=== PATIENT | female | born 1975 | race Caucasian/White ===

== ENCOUNTER → 2021-12-03 14:45 | Outpatient (CLI) | payer BC, SELFPAY ==
--- NOTE | ~2021-12-03 | XR_ITS ---
XR lumbar spine 2-3V DATE: 12/03/2021 15:03 INDICATION: Back pain TECHNIQUE: AP, lateral, coned lateral lumbosacral views COMPARISON: None FINDINGS: There is slight levoscoliosis of the thoracolumbar spine. There is minimal degenerative spu rring of the lumbar spine. Lumbar and lumbosacral spaces are well preserved. No fracture or bone destruction. The included lower thoracic and lumbar pedicles are intact. The sacr oiliac joints are normal. IUD device overlies the pelvis. IMPRESSION: Slight levoscoliosis Minimal degenerative spurring Reviewed, dictated and finalized at location A. POURER
== END ==
PROVIDERS: PCP Family Medicine; Visit Provider Nurse Practitioner Family
DX: M54.9 Dorsalgia, unspecified (principal)
CPT/HCPCS: 72100

== ENCOUNTER 2024-09-06 03:02 | Day surgery (SDC) | payer OTHER, SELFPAY ==
[2024-08-30 11:11] VITALS: BMI 25.4
--- NOTE | 2024-08-30 11:11 | PC.NURSE ---
Report to the Outpatient Waiting Room, entrance under the green pavilion located off [facility], at time _0815_ on date _[phone]_. Planned Procedure Time: _1015_.? Time changes happen often and if your time is changed the preop area will call you the afternoon before. - You and your visitor will be asked to self-screen and do not enter if you have any COVID symptoms. Please call surgeon if you need to reschedule. - A mask is optional within the hospital at this time. Patients may have clear liquids (water, carbonated beverages, clear teas, apple juice) until 3 hours prior to surgery with a maximum of 20 ounces. - No food from midnight until time of surgery and no smoking Take only the following medications with a SIP of water on the morning of surgery: _Albuterol if needed.__ DO NOT STOP ANY OF YOUR OTHER PRESCRIPTION MEDICATIONS PRIOR TO SURGERY EXCEPT THE FOLLOWING Medications to discontinue per physician ____None___ Date to take last dose Please no make-up, nail maltese, hairspray, perfume, deodorant, or body powder the day of surgery.? No jewelry (including any body piercings) or valuables the day of surgery, leave them at home.? Please take a shower or bath the night before, or the morning of, surgery with an antibacterial soap.? Wear comfortable, loose fitting clothing.? - Jewelry must be removed prior to entering the operating room.? Rings and piercings that are not removed may be cut off. - The hospital will not accept responsibility for valuables.? - Please leave all valuables, including medications, at home the day of surgery. If you are going home after surgery, a licensed new car driver must drive you home.? - NO public transportation without another adult if you receive anesthesia. - We recommend that an adult stay with you for 24 hours following discharge. - We also recommend that you do not drive, make important decision, drink alcoholic beverages, or take any drugs that were not prescribed by your health care provider for at least 24 hours after your discharge time. Follow any additional instructions given to you from your surgeon. Telephone instructions given to _Kristi__and asked if any additional questions and then verbalized understanding. Patient advised to call surgeon office or pre surgery nurse liaison [phone] if any additional questions.
--- NOTE | 2024-09-04 07:08 | PM.IMHP ---
H&P: HPI History of Present Illness Date/Time: 09/04/24 07:08 Chief Complaint: Retained portion of IUD Narrative: Is a 48-year-old female who had an IUD removed and 1 weighing was the unable to be removed. She has a large 5cm fibroid there was only a cm half about 6 months ago. Ultrasound shows the portion of the IUD to be present inside the uterus. She will undergo hysteroscopy dilatation curettage. Risks and benefits reviewed in great detail. She had all questions answered and asked to proceed [facility] Social History Social History Smoking status: Never smoker Alcohol intake: current Drinks per week: 5 Substance use type: marijuana Other substance usage details: once a month Living arrangements: with family Spiritual care concerns: No Meds Home Medications and Allergies Home Medications Medication Instructions Recorded Confirmed Type albuterol 90 mcg/actuation aerosol 1 mcg inhalation QID PRN Dyspnea 08/30/24 08/30/24 History inhaler dicyclomine 10 mg capsule 20 mg PO QID 08/30/24 08/30/24 History fexofenadine 180 mg tablet 180 mg PO DAILY 08/30/24 08/30/24 History valacyclovir 1 gram tablet 1,000 mg PO Q12H PRN Cold Sores 08/30/24 08/30/24 History Allergies Allergy/AdvReac Type Severity Reaction Status Date / Time No Known Allergies Allergy Verified 08/30/24 14:38 Exam Const: General: cooperative, healthy appearing, comfortable and average body habitus Orientation/consciousness: oriented to person, oriented to place and oriented to time Resp: Effort & Inspection: normal respiratory effort Cardio: Rate: regular rate Rhythm: regular rhythm Heart sounds: S1 normal heart sound present and S2 normal heart sound present GI: Inspection: normal to inspection : External Female Exam: normal external appearance Speculum Exam - Vagina: normal appearance of the vagina Speculum Exam - Cervix: normal appearance of the cervix Bimanual exam- vagina & uterus: enlarged Bimanual Exam- Adnexa, other: normal adnexae Assessment and Plan Assessment and plan (1) Inflammation associated with retained intrauterine contraceptive device (IUD): Code(s): T83.69XA - Infection and inflammatory reaction due to other prosthetic device, implant and graft in genital tract, initial encounter Status: Acute Assessment and Plan: Proceed with hysteroscopy and removal of IUD as well as dilatation curettage.
--- NOTE | ~2024-09-06 | XR_ITS ---
EXAMINATION: XR pelvis 1-2V DATE: 09/06/2024 10:34 INDICATION: Dislodged IUD TECHNIQUE: An anteroposterior view of the pelvis was obtained. COMPARISON: Lumbar spine radiographs dated 12/03/2021 FINDINGS: The previously seen T-shaped IUD is no longer present in the pelvis or visualized lower abdomen. Ther e are couple surgical clips the right lower quadrant which could represent clips related to prior cho lecystectomy or clips related to prior appendectomy. Couple sclerotic likely bone islands at the righ t femoral head and right iliac wing. IMPRESSION: 1. No IUD in the pelvis or visualized lower abdomen. Reviewed, dictated and finalized at location A.
--- NOTE | 2024-09-06 06:49 | WPDHPUPDATE1 ---
History and Physical Update Update Date/Time: 09/06/24 06:49 History and Physical has been reviewed, including an updated exam of the patient. There are NO changes in the patient's condition. Risks, benefits, and alternatives have been discussed and questions answered. Patient agrees to proceed with procedure.
[2024-09-06 08:20] VITALS: BP 144/79; PULSE 69; RESP 16; TEMP 36.3; O2SAT 100
[2024-09-06] MEDS: ACETAMINOPHEN 500 MG TABLET 1000 MG PO (08:42)
[2024-09-06] MEDS: LACTATED RINGERS 1,000 ML 30 ML IV CONT (08:50)
[2024-09-06 08:57] LABS: Hemoglobin 12.1 g/dL (12.0-15.0)
[2024-09-06 09:04] LABS: BEDSIDEPREGUCG Negative (Negative)
--- NOTE | 2024-09-06 09:18 | WPDANESEPPF ---
Anes - Initial Pre Proc Eval Procedure: Operation Date: 09/06/24 10:15 Proposed Procedures p Hysteroscopy Dilation and Curettage with Removal of Intrauterine Device - Todd Nath MD Date/Time: 09/06/24 09:18 Surgeon: Todd Nath MD Pre Op Diagnosis: Removal of IUD Patient Data Age: 48 Gender: F Height: 1.68 m Weight: 72.6 kg Last Vital Signs Temp 36.3 C L 09/06/24 08:20 Pulse 69 09/06/24 08:20 Resp 16 09/06/24 08:20 BP 144/79 H 09/06/24 08:20 Pulse Ox 100 09/06/24 08:20 O2 Del Method Room Air 09/06/24 08:20 Allergies Allergy/AdvReac Type Severity Reaction Status Date / Time No Known Allergies Allergy Verified 09/06/24 08:18 Home Medications Medication Instructions Recorded Confirmed Type albuterol 90 mcg/actuation aerosol 1 mcg inhalation QID PRN Dyspnea 08/30/24 09/06/24 History inhaler dicyclomine 10 mg capsule 20 mg PO QID 08/30/24 09/06/24 History fexofenadine 180 mg tablet 180 mg PO DAILY 08/30/24 09/06/24 History valacyclovir 1 gram tablet 1,000 mg PO Q12H PRN Cold Sores 08/30/24 09/06/24 History hydrocodone 5 mg-acetaminophen 325 1 tablet PO Q4H PRN pain #14 tabs 09/06/24 Rx mg tablet medroxyprogesterone 10 mg tablet 10 mg PO DAILY 09/06/24 09/06/24 History (Provera) venlafaxine 37.5 mg 37.5 mg PO QPM 09/06/24 09/06/24 History capsule,extended release 24 hr (Effexor XR) Laboratory Tests 09/06/24 09/06/24 08:20 08:45 Hgb Pending Hct Pending POC Urine HCG, Qual Negative (Negative) Patient hx anesthesia problems: none Family hx anesthesia problems: none Results Review: All pre-operative results and documents have been reviewed as part of the pre-operative evaluation. [facility] Past Medical History Medical History (Updated 09/06/24 @ 09:18 by Todd Montoya MD) Overweight Social History Social History Smoking status: Never smoker Alcohol intake: current Drinks per week: 5 Substance use type: marijuana Other substance usage details: once a month Living arrangements: with family Spiritual care concerns: No Anes - Eval Final PreProcedure Day of Procedure 09/06/24 09:18 Patient weight: overweight Heart: regular rate and rhythm Lungs: clear to auscultation Airway: Mallampati scale class II Neurological: alert and oriented Last oral intake: >/= 8 hours ASA classification: II Emergent: no Anesthetic plan: proceed Anesthesia type and monitoring: general GIVS and standard monitoring Results Review: All pre-operative results and documents have been reviewed as part of the pre-operative evaluation. Informed Consent: The patient's anesthetic plan and its attendant risks and benefits were discussed with the patient/family/POA. Questions were solicited and answers provided to the satisfaction of the patient/family/POA.
[2024-09-06] MEDS: LIDOCAINE HCL 1% LOCAL INJ 20 ML VIAL 10 ML INFILTRATE (10:12)
[2024-09-06 10:16] VITALS: BP 120/74; PULSE 66; RESP 14; O2SAT 100
--- NOTE | 2024-09-06 10:18 | P.OP_ITS ---
Procedure Note - Detailed Date of Procedure 09/06/24 Pre-op Diagnosis Removal of IUD Post-op Diagnosis Same Procedure Performed Hysteroscopy polypectomy dilatation curettage Surgeon Todd Nath MD Anesthesia MAC and Local Indications this is a 48-year-old woman who had IUD removed 1 lesion was missing. She underwent ultrasound was what appeared to possibly be the remnant in the uterus she does have a 5cm fibroid making exam much more difficult she has also had heavy bleeding Findings small polyp was seen inside the uterus. No evidence of remaining arm of the IUD seen. Description of Procedure The patient was prepped draped in the normal sterile fashion placed in the dorsal lithotomy position. Under excellent IV sedation weighted speculum placed in posterior fornix vagina. Anterior lip of the cervix grasped with single- tooth tenaculum. 2.5cc 1% xylocaine anesthesia placed at 2, 4, 8, 10:00 a.m. of the cervix. Uterus sounded to 8cm. Serial dilatation with fragmented dilators performed followed by passage of the 5mm visualizing hysteroscope using normal saline as visualizing medium. Small polyp was seen no other abnormalities were seen each fallopian tube os could be seen the entire cavity was visualized and no evidence of remaining arm was present. The polyp was removed with a polyp polyp reticular later. And the uterus scraped over the entire 360 gaze until good grating sound was heard the instruments removed. The patient was awakened went recovery in satisfactory condition. All sponge, needle, instruments were correct. There were no immediate complications. A pelvic x-ray has been ordered to see if the remaining portion is intra-abdominal Estimated Blood Loss 5 Drains No Packing No Pathology Yes Complications No immediate complications Condition Stable Disposition PACU
[2024-09-06 10:45] VITALS: BP 155/84; PULSE 66
[2024-09-06 11:15] VITALS: BP 148/84; PULSE 62
[2024-09-06 11:45] VITALS: BP 147/85; PULSE 67
== END 2024-09-06 11:50 | disposition home or self-care (01) ==
PROVIDERS: PCP Family Medicine; Visit Provider Obstetrics & Gynecology
PROC: 0U5B8ZZ Destruction of Endometrium, Via Natural or Artificial Opening Endoscopic (ICD-10-PCS; CPT 58563; principal; 2024-09-06 10:15)
DX: R93.89 Abnormal findings on diagnostic imaging of other specified body structures (principal); N84.0 Polyp of corpus uteri; F12.90 Cannabis use, unspecified, uncomplicated; Z79.51 Long term (current) use of inhaled steroids; Z79.891 Long term (current) use of opiate analgesic
CPT/HCPCS: 58558; 36415; 72170; 85014; 85018; 88305; A9270; J1100; J2003; J2250; J2405; J2704; J3010; J7120

== ENCOUNTER 2024-12-31 12:22 | Outpatient (CLI) | payer OTHER, SELFPAY ==
--- OUTSIDE RECORDS SUMMARY | 2024-12-31 14:08 | XMS_ITS | Clinical Summary ---
Author Organization [facility] Address [address] [place] [address] Care Team Providers Care Draw Bench Operator Name Role Phone Oksana Herndon MD Primary Care Provider Allergies No known active allergies Medications albuterol sulfate HFA 108 (90 Base) MCG/ACT inhaler Inhale 1 puff into the lungs every 6 (six) hours as needed. Active valACYclovir (VALTREX) 500 MG tablet Take 2 tablets (1,000 mg total) by mouth as needed (cold sore flares). 3 Active Testosterone Powder Apply 1 Application topically daily. 4 Active cetirizine (ZYRTEC) 10 MG tablet Take 1 tablet (10 mg total) by mouth daily. Active HYDROcodone-acet aminophen (NORCO) 5-325 MG tabletIndication s:Acute Pain < 7 Day Supply Take 1 tablet by mouth every 8 (eight) hours as needed for Pain. Indications: Acute Pain < 7 Day Supply 15 tablet 4 Active Additional Information Patient not taking.Reported on 05/01/2024 dicyclomine (BENTYL) 10 MG capsuleIndicatio ns:Diarrhea, unspecified type TAKE 2 CAPSULES (20 MG TOTAL) BY MOUTH 4 (FOUR) TIMES DAILY BEFORE MEALS AND NIGHTLY. 120 capsule 3 4 Active Active Problems Problem Noted Date Diagnosed Date Acute appendicitis 04/04/2024 Resolved Problems Problem Noted Date Diagnosed Date Resolved Date Appendicitis 04/04/2024 05/01/2024 Encounters Date Type Department Care Team Description 12/13/2024 2:14 PM TOOL PROGRAMMER - 12/13/2024 11:59 PM TOOL PROGRAMMER Hospital Encounter [facility] [address] [place] [address] Jerel Hyde MD Discharge Disposition: Home or Self Care (Routine Discharge) 12/13/2024 Orders Only [facility] [address] [place] [address] Jerel Hyde MD 12/13/2024 Travel from Last 3 Months Family History Medical History Relation Comments Stroke Father Breast Cancer Maternal Grandmother Heart Disease Mother Kidney Disease Sister Relation Status Comments Father Maternal Grandmother Mother Sister Social History Tobacco Use Types Packs/Day Years Used Date Smoking Tobacco: Never Smokeless Tobacco: Never Tobacco Cessation:Counseling Given: Not Answered [facility] Utilities Answer Date Recorded In the past 12 months has e [employer], gas, oil, or water [employer] threatened to shut off services in your home? No 04/04/2024 Humiliation, Afraid, Rape, and Kick questionnair e Answer Date Recorded Within the last year, have y ou been afraid of your partner or ex-partner? No 04/04/2024 Within the last year, have y ou been humiliated or emotionally abused in other ways by your partner or ex-partner? No Within the last year, have y ou been kicked, hit, slapped, or otherwise physically hurt by your partner or ex-partner? No 04/04/2024 Within the last year, have y ou been raped or forced to have any kind of sexual activity by your partner or ex-partner? No 04/04/2024 Overall Financial Resource Strain (CARDIA) Answe r Date Recorded How hard is it for you to pa y for the very basics like food, housing, medical care, and heating? Not hard at all 04/04/2024 Hunger Vital Sign Answer Date Recorded Within the past 12 months, y ou worried that your food would run out before you got the money to buy more. Never true 04/04/20 24 Within the past 12 months, t he food you bought just didn't last and you didn't have money to get more. Never true 04/04/2024 PRAPARE - Transportation Answer Date Re corded In the past 12 months, has l ack of transportation kept you from medical appointments or from getting medications? No 03/08 In the past 12 months, has l ack of transportation kept you from meetings, work, or from getting things needed for daily living? No 04/04/2024 Housing Stability Vital Sign Answer Lakhwinder e Recorded In the last 12 months, was t here a time when you were not able to pay the mortgage or rent on time? No 04/04/2024 In the past 12 months, how m any times have you moved where you were living? 1 04/04/2024 At any time in the past 12 m [facility], were you homeless or living in a longterm (including now)? No 04/04/2024 Comments No Sex and Gender Information Value Date Recorded Sex Assigned at Not on file Legal Sex Female 8:24 PM CDT Gender Identity Not on file Sexual Orientation Not on file Last Filed Vital Signs Vital Sign Reading Time Taken Comments Blood Pressure 130/75 05/01/2024 1:14 PM CDT Pulse 67 05/01/2024 1:14 PM CDT Temperature 36.7 C (98.1 F) 05/01/2024 1:14 PM CDT Respiratory Rate 16 05/01/2024 1:14 PM CDT Oxygen Saturation 99% 05/01/2024 1:14 PM CDT Inhaled Oxygen Concentration - - Weight 69.9 kg (154 lb 2 oz) 04/05/2024 4:31 AM CDT Height 167.6 cm (5' 6 ) 04/04/2024 7:45 AM CDT Body Mass Index 24.88 04/04/2024 7:45 AM CDT Plan of Treatment Health Maintenance Due Date Last Done Comments Cervical Cancer Screening Pap Smear (Age 30 to 64) Every 3 Years 1973 Colorectal Cancer Screening Colonoscopy (10 Years) 1973 Annual Physical 1976 Hepatitis C 1991 Hepatitis B Vaccines (1 of 3 - + 3-dose series) 1992 Cervical Cancer Screening Pap with HPV Testing (Age 30 to 64) Every 5 Years 2003 Cervical Cancer Screening with HPV 2003 Zoster Vaccines (1 of 2) 2023 DTaP, Tdap and Td Vaccines (2 - Td or Tdap) 01/05/2024 01/04/2014 COVID-19 Vaccine ( season) 2024 08/31/2022, 03/14/2022, 09/02/2021, Additional history exists Influenza Adult (#1) 2024 10/03/2022, 09/15/2021, 09/18/2012 PHQ-2 (Physician [place]) 11/06/2024 Mammogram Screening 03/20/2025 03/20/2023 Meningococcal B Vaccine Aged Out No l onger eligible based on patient's age to complete this topic Meningococcal Vaccine Aged Out No bruno yessi eligible based on patient's age to complete this topic Pneumococcal Vaccine: Pediatrics (0 to 5 Years) and At-Risk Patients (6 to 64 Years) Aged Out No longer eligible based on patient's age to complete this topic RSV Immunizations Under 20 Months Aged Out No longer eligible based on patient's age to complete this topic Procedures Procedure Name Priority Date/Time Associated Diagnosis Comments PROGESTERONE Routine 12/13/2024 2:20 PM TOOL PROGRAMMER Menopausal and female climacteric states ESTROGEN, TOTAL Routine 12/13/2024 2:20 PM TOOL PROGRAMMER Menopausal and female climacteric states HC TESTOSTERONE FREE-90 Routine 12/13/2024 2:20 PM TOOL PROGRAMMER Menopausal and female climacteric states FSH, FOLLICLE STIM HORMONE Routine 12/13/2024 2:20 PM TOOL PROGRAMMER Menopausal and female climacteric states MG SCREENING W RONNY TRACIE DIGI Routine 03/20/2023 4:37 PM CDT Encounter for screening mammogram for malignant neoplasm of breast from Last 3 Months or Most Recently Relevant to Health Maintenance Results * TESTOSTERONE, FREE & TOTAL (12/13/2024 2:20 PM TOOL PROGRAMMER) TESTOSTERONE TOTAL 7 2 - 45 ng/dL 12/18/2024 7:14 PM TOOL PROGRAMMER [facility] Comment: For additional information, please refer to http://education.[employer].riskmethods/faq/ ExeorFlwnthbgvdexZLJJXUGNQ863 (This link is being provided for informational/ educational purposes only.) This test was developed and its analytical performance characteristics have been determined by [facility] [place], [place]. It has not been cleared or approved by the U.S. Food and Drug Administration. This assay has been validated pursuant to the CLIA regulations and is used for clinical purposes. TESTOSTERONE FREE 0.6 0.1 - 6.4 pg/mL 12/18/2024 7:14 PM TOOL PROGRAMMER [facility] Comment: This test was developed and its analytical performance characteristics have been determined by [facility] [place], [place]. It has not been cleared or approved by the U.S. Food and Drug Administration. This assay has been validated pursuant to the CLIA regulations and is used for clinical purposes. Test Performed by [facility], [facility], [address] [place] [address] Bryan Naylor M.D., Ph.D., Director of Laboratories , CLIA [id number] 12/13/2024 2:20 PM TOOL PROGRAMMER Jerel Hyde MD LABORATORY Final Result [facility] [address] , * FSH, FOLLICLE STIM HORMONE (12/13/2024 2:20 PM TOOL PROGRAMMER) FSH 85.0 MIU/ML 12/13/2024 8:32 PM TOOL PROGRAMMER [facility] Comment: REFERENCE RANGES FOR FEMALES: FOLLICULAR 3.5-12.5 MID-CYCLE 4.7-21.5 LUTEAL 1.7-7.7 POSTMENOPAUSAL 25.8-134.8 12/13/2024 2:20 PM TOOL PROGRAMMER Jerel Hyde MD LABORATORY Final Result [facility] [address] [place] [address], [place] [phone] * ESTROGEN, TOTAL (12/13/2024 2:20 PM TOOL PROGRAMMER) [facility] ESTROGEN TOTAL S/P/B 57 pg/mL 12/19/2024 7:23 PM TOOL PROGRAMMER [facility] Comment: Reference Ranges for Total Estrogen: Follicular Phase: 51-601 Luteal Phase: 87-1194 Postmenopausal: < or = 214 Test performed by [facility] [address] [place] [address] [employer] Hel[employer] Machine: Lucía Whitley MD,PHD,GEOFF Test Reported by [facility], [address] [place] [address] Bryan Naylor M.D., Ph.D., Director of Laboratories , [facility] [id number] 12/13/2024 2:20 PM TOOL PROGRAMMER Jerel Hyde MD LABORATORY Final Result [facility] [id number] [place] [address], [place] [phone] * PROGESTERONE (12/13/2024 2:20 PM TOOL PROGRAMMER) [facility] PROGESTERONE <0.2 see note ng/mL 12/18/2024 2:24 PM TOOL PROGRAMMER [facility] Comment: Unable to flag abnormal result(s), please refer to reference range(s) below: Female: Follicular Phase <1.0 ng/mL Luteal Phase 2.6 - 21.5 ng/mL Post Menopausal <0.5 ng/mL : 1st Trimester 4.1 - 34.0 ng/mL 2nd Trimester 24.0 - 76.0 ng/mL 3rd Trimester 52.0 -302.0 ng/mL Test Performed by [facility] [place], [address] [place] [address] Bryan Naylor M.D., Ph.D., Director of Laboratories , CLIA [id number] 12/13/2024 2:20 PM TOOL PROGRAMMER Jerel Hyde MD LABORATORY Final Result Performing Organization Address City/[facility] Co de Phone Number [facility] [address] [place], [place] , * MG SCREENING W RONNY TRACIE DIGI (03/20/2023 4:37 PM CDT) Anatomical Region Laterality Modality Breast Bilateral Computed Tomogra phy, Other 03/21/2023 4:26 PM CDT Narrative 03/21/2023 4:31 PM CDT IMAGING STUDIES: Bilateral screening mammograms with computer-aided detection with 2-D and 3-D imaging. Tomosynthesis. DATE: 03/20/2023 4:22 PM HISTORY: Encounter for screening mammogram for malignant neoplasm of breast . COMPARISON: 03/02/2015. March 11, 2015 TISSUE TYPE: The breast tissue is heterogeneously dense, which may obscure small masses. FINDINGS: 1. Moderately dense fibroglandular tissue pattern is present. This does limit sensitivity of mammography. Benign nodularity. Benign calcifications. 2. No malignant microcalfcifications, new dominant masses, or architectural distortion. 3. No skin thickening or nipple retraction. Axillary regions are within normal limits. IMPRESSION: 1. No mammographic evidence of malignancy. 2. Assessment: ACR BI-RADS 2 - BENIGN FINDING(S) 3 .Routine Screening Bilateral MQSA BI-RADS Categories: Category 0 - needs additional imaging evaluation. Category 1 - negative. Category 2 - benign findings. Category 3 - probably benign findings, but short interval follow-up is recommended. Category 4 - suspicious abnormality and biopsy should be considered though the lesion may well be benign. Category 5 - highly suggestive of malignancy and appropriate action should be taken. Category 6 - known biopsy-proven malignancy A) A negative report should not delay a biopsy if a dominant or clinically suspicious mass is present. B) Adenosis and dense breasts may obscure an underlying neoplasm. C) Study interpreted with computer aided detection. Ordered By: LANIE DOVE Interpreted By: Yamile Barrientos, 03/21/2023 4:26 PM Lanie Dove OUTPATIENT PHARMACY MANAGER MAMMO Final Result from Last 3 Months or Most Recently Relevant to Health Maintenance Insurance [employer] [facility] Advance Directives * Full Code (Latest Code Status on File) Date Activated Date Inactivated Comments 04/04/2024 5:27 AM 04/05/2024 3:27 PM Care Teams Draw Bench Operator Relationship Specialty Start Date End Date Oksana Herndon MD [address] [place] [address] PCP - General 03/17/23
[2025-01-02 04:18] LABS: FSH 89.1 mIU/mL
== END 2024-12-31 12:23 | disposition home or self-care (01) ==
LOC: ANHLAB 12:24
PROVIDERS: PCP Family Medicine; Visit Provider Obstetrics & Gynecology
DX: N95.1 Menopausal and female climacteric states (principal)
CPT/HCPCS: 36415; 82672; 83001

== ENCOUNTER 2025-03-21 14:30 | Outpatient (CLI) | payer OTHER, SELFPAY ==
--- NOTE | ~2025-03-21 | US_ITS ---
EXAM: PELVIC ULTRASOUND HISTORY: D25.9 - Leiomyoma of uterus, unspecified COMPARISON: None. FINDINGS: UTERUS: 9.3 x 6.7 x 5.1 cm. The uterus is nodular in contour, anteverted and anteflexed in position. The endometrial complex measures 4 mm. Free fluid is identified within the cervical canal. Multiple fibroids are identified within the uterus. Subserosal, within the fundus of the uterus measuring 16 x 15 mm. Submucosal, also within the fundus of the uterus measuring 56 x 36 mm. RIGHT OVARY: The right ovary is heterogeneous in echogenicity and increased size measuring 3.6 x 3.2 x 3.4 cm. Dopplerable flow is identified. Within the right ovary is a irregular focus of mixed echogenicity with reticular pattern, likely seco ndary to fibrin strands. Sonographically this area represents a hemorrhagic cyst measuring 3.1 x 2.7 x 2.9 cm. LEFT OVARY: Despite prolonged interrogation, the left ovary was not visualized. No free fluid is identified within the pelvis. IMPRESSION: Fibroid uterus. Hemorrhagic cyst within the right ovary, for which follow-up ultrasound in 6-12 weeks (given that thi s patient is perimenopausal) is recommended. Reviewed, dictated and finalized at location A. IMPRESSION: Fibroid uterus. Hemorrhagic cyst within the right ovary, for which follow-up ultrasound in 6-12 weeks (given that this patient is perimenopausal) is recommended.
== END 2025-03-21 14:31 | disposition home or self-care (01) ==
PROVIDERS: PCP Obstetrics & Gynecology; Visit Provider Obstetrics & Gynecology
DX: D25.9 Leiomyoma of uterus, unspecified (principal)
CPT/HCPCS: 76830; 76856